=== PATIENT | male | born 1995 | race Caucasian/White ===

== ENCOUNTER 2016-10-02 10:08 | Emergency (ER) | payer BC ==
[~2016-10-02] VITALS: Ht 175.3 cm; Wt 90.0 kg
[2016-10-02 10:10] VITALS: Ht 175.3 cm; Wt 90.0 kg
[2016-10-02] MEDS ORDERED: KETOROLAC 30 MG INJ IM STA (10:21)
[2016-10-02] MEDS ORDERED: CYCL5TAB PO (10:23)
[2016-10-02] MEDS ORDERED: IBUP-1542 PO (10:23)
--- NOTE | 2016-10-02 11:10 | ERD ---
ER Documentation Chief Complaint Date/Time DATE: 10/02/16 TIME: 11:08 Chief Complaint back pain HPI 20-year-old male comes in with low back pain that started today this, this morning while he was playing basketball. Patient states that he was turning to the left, and he has low back pain on the left side, achy, worse with any turning, sitting. He denies saddle anesthesia, loss of bowel bladder function or radicular symptoms. He denies other trauma, only twisting activity of mold. ROS All systems reviewed and are negative except as per history of present illness. Medications Home Meds Active Scripts Cyclobenzaprine Hcl* (Cyclobenzaprine Hcl*) 5 Mg Tablet, 5 MG PO Q8H Y for PAIN , #15 TAB Prov:DANY AGUILERA PA-C 10/02/16 Ibuprofen* (Motrin*) 600 Mg Tab, 600 MG PO Q6, #30 TAB Prov:DANY AGUILERA PA-C 10/02/16 Reported Medications [None] No Conflict Check 04/25/10 Allergies Allergies: Coded Allergies: No Known Allergy (Verified , NONE, 06/14/11) PMhx/Soc History of Surgery: Yes (APX, RECTAL) Anesthesia Reaction: No Hx Neurological Disorder: No Hx Respiratory Disorders: No Hx Cardiac Disorders: No Hx Psychiatric Problems: No Hx Miscellaneous Medical Probl: No Hx Alcohol Use: No Hx Substance Use: No Hx Tobacco Use: No Physical Exam Vitals Vital Signs Date Time Temp Pulse Resp B/P Pulse Ox O2 Delivery O2 Flow Rate FiO2 10/02/16 10:10 98.1 84 18 125/77 99 Physical Exam General: Well-developed, well-nourished. The patient appears in no acute distress. HEENT: Head is normocephalic, atraumatic. No scleral icterus. Neck: Supple. Nontender. Lungs: Clear to auscultation. Normal air movement. Heart: Regular rate and rhythm. S1 and S2 are normal. No murmurs, gallops, or rubs. Abdomen: Soft, nontender, nondistended. Bowel sounds are normoactive. Back: No midline tenderness, patient is able to straight leg raise up to 60 reproducible pain on the left side. Strength lower extremities 5 out of 5 bilaterally. Extremities: No clubbing or cyanosis. Normal pulses. Moving extremities x 4. No weakness. Neurologic: Alert and oriented 3. No focal deficits. Skin: Normal turgor. No rash or lesions. Results 24 hrs Current Medications Medications (Trade) Dose Ordered Sig/Majo Route PRN Reason Start Time Stop Time Status Last Admin Dose Admin Ketorolac Tromethamine (Toradol) 30 mg ONCE STAT IM 10/02/16 10:21 10/02/16 10:22 DC 10/02/16 10:26 Procedures/MDM 20-year-old male, with lumbar strain, after playing basketball. Patient's clinical symptoms appear to be muscular, and there are no signs of cauda equina compression syndrome or any neurologic injury. His back examination is benign and does not warrant any radiographic imaging. He will be given a short course of ibuprofen, as well as Flexeril. He was given Toradol emergency department and responded well. Departure Diagnosis: Primary Impression: Back pain Condition: Good Patient Instructions: Back Sprain/Strain Additional Instructions: Call your primary care doctor TOMORROW for an appointment during the next 1-2 days.See the doctor sooner or return here if your condition worsens before your appointment time. DANY AGUILERA PA-C Oct 02, 2016 11:10
== END 2016-10-02 10:38 | disposition home or self-care (01) ==
LOC: FTE 10:08
DX: M54.5 Low back pain (principal)
CPT/HCPCS: 96372; J1885

== ENCOUNTER 2018-12-11 12:14 | Emergency (ER) | payer BC, OTHER ==
[~2018-12-11] VITALS: Ht 180.3 cm; Wt 84.5 kg
[~2018-12-11 12:14] MED LIST: CYCL5TAB PO; IBUP-1542 PO
[2018-12-11 12:29] VITALS: BP 136/79; PULSE 61; RESP 18; Ht 180.3 cm; Wt 84.5 kg
== END 2018-12-11 14:25 | disposition home or self-care (01) ==
LOC: E/R 12:14
DX: R22.2 Localized swelling, mass and lump, trunk (principal)
CPT/HCPCS: 76536; Z7502